=== PATIENT | female | born 1960 | race Caucasian/White ===

== ENCOUNTER 2019-09-13 12:36 | Emergency (ER) | payer SELFPAY ==
[2019-09-13] MEDS ORDERED: traMADol HCl 50 MG TAB ONE (13:17)
[2019-09-13] MEDS ORDERED: Ibuprofen 800 MG TAB ONE (13:17)
[2019-09-13 13:22] LABS: Bilirubin Negative (Negative); Blood, Urine Negative (Negative); Clarity Slightly Cloudy (Clear); Glucose, Urine (Dipstick) 500 mg/dL (Negative); Leukocyte Negative (Negative); Nitrite Negative (Negative); Protein, Urine (Dipstick) Negative (Neg-Trace)
--- NOTE | 2019-09-13 18:49 | CT ---
CT ABDOMEN AND PELVIS WITHOUT CONTRAST: 09/13/19 The lung bases are clear. There may be a minimal hiatal hernia. The liver, spleen, pancreas, gallblad gisela, adrenal glands and abdominal aorta showed no acute findings within the limitations of a noncontr ast study. Moderately dense calcification is seen in the distal aorta and proximal iliac arteries. There is no sign of hydronephrosis or of renal and ureteral calculi. There is a 1.1 cm lucency in the middle third of the left kidney. Statistically, it is most likely a cyst, however, an elective ultra sound should be done to be sure that it is not solid. The bowel shows no dilation, wall thickening, or inflammatory change around it. The appendix appears normal. There is no free air or free fluid. CT of the pelvis shows no pelvic masses, fluid collections, or inflammatory changes. The adnexal arden ons were unremarkable. There is some diffuse bulging of the L4-L5 disc with a little more of a left paracentral bulge or pro trusion which slightly effaces the thecal sac. This may or may not be currently significant. IMPRESSION: 1. No evidence of urinary tract obstruction. 2. 1.1 cm lucency in the left kidney needing an elective ultrasound to prove or disprove a cyst. 3. Slight left paracentral bulge of the L4-L5 disc. Findings and need for follow-up discussed with Dr. Mcpherson at 1350 on 09/13/19. POS: HOME
== END 2019-09-13 14:05 | disposition home or self-care (01) ==
LOC: BURERS 12:36
DX: M54.5 Low back pain (principal); I10 Essential (primary) hypertension; F17.290 Nicotine dependence, other tobacco product, uncomplicated
CPT/HCPCS: 74176; 81003